=== PATIENT | female | born 2005 | race Caucasian/White ===

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

== ENCOUNTER 2024-10-06 14:43 | Outpatient (CLI) | payer OTHER, SELFPAY ==
--- NOTE | 2024-10-06 14:45 | CRLHL7_ITS ---
For Patients: As a result of the Century Cures Act, medical imaging exams and procedure reports are released immediately into your electronic medical record. You may view this report before your referring provider. If you have questions, please contact your health care provider. Indication: Lump Technique: Grayscale and color Doppler ultrasound of the left medial posterior thigh soft tissues performed. Comparison: None Findings: Circumscribed lobular hypoechoic solid mass with hypoechoic internal echotexture with associated vascularity. This is located within the subcutaneous fat and measures 1.5 x 1.4 x 0.9 cm. Impression: Indeterminate solid lobular hypoechoic vascular mass within the subcutaneous fat measuring 1.5 cm. Further evaluation with MRI recommended. Dictated by Benji Cortes MD @ 10/08/2024 6:15:43 PM (Electronically Signed)
== END 2024-10-06 14:44 | disposition home or self-care (01) ==
LOC: US 14:43
PROVIDERS: PCP Registered Nurse; Visit Provider Registered Nurse
DX: M79.89 Other specified soft tissue disorders (principal); R22.42 Localized swelling, mass and lump, left lower limb
CPT/HCPCS: 76882

== ENCOUNTER 2025-09-30 13:31 | Outpatient (CLI) | payer OTHER, SELFPAY ==
[2025-09-30 17:46] LABS: GC DNA Amplified* NOT DETECTED (No Detected)
[2025-09-30 19:39] LABS: Chlamydia DNA Amplified* DETECTED (No Detected)
== END 2025-09-30 13:32 | disposition home or self-care (01) ==
PROVIDERS: PCP Registered Nurse
DX: R10.30 Lower abdominal pain, unspecified (principal)
CPT/HCPCS: 87491; 87591

== ENCOUNTER 2025-10-01 00:19 | Emergency (ER) | payer OTHER, SELFPAY ==
[2025-10-01 00:23] VITALS: BP 120/71; PULSE 90; RESP 17; TEMP 36.6; O2SAT 96; BMI 24.5
--- NOTE | 2025-10-01 00:40 | ED.ABDPAIN ---
HPI - Abdominal Pain General Time Seen by Provider: 00:41 Date Seen: 10/01/25 Chief Complaint: Abdominal Pain Stated Complaint: abdominal pain Time Seen by Provider: 10/01/25 00:40 Source: patient, RN notes reviewed and old records reviewed Mode of arrival: ambulatory Limitations: no limitations History of Present Illness HPI narrative: 20-year-old female who presents today with abdominal pain. Patient presents today with lower abdominal pain and cramping that has been going on since yesterday. She has no nausea, vomiting, or diarrhea. She denies vaginal discharge or bleeding although does note that she took Plan B about 10 days ago and had 2 days of bleeding after that. She is sexually active. She denies urinary symptoms. She is taking ibuprofen for her pain, was seen at urgent care earlier. Related Data Previous Rx's ?Medication ?Instructions ?Recorded doxycycline monohydrate 100 mg 100 mg PO BID #13 caps 10/01/25 capsule metronidazole 500 mg tablet 500 mg PO BID #13 tabs 10/01/25 Allergies Allergy/AdvReac Type Severity Reaction Status Date / Time No Known Drug Allergies Allergy Verified 10/01/25 01:30 [facility], [facility] Social History Smoking Status: Never smoker Do you use any of these nicotine containing products: None How often do you have a drink containing alcohol: monthly or less AUDIT-C Alcohol total score: 1 Non-prescribed substance use: denies use Exam Narrative: Exam Narrative: General: Well-developed and well-nourished, no acute distress Head: Atraumatic and normocephalic Eyes: Pupils are equal reactive, extraocular motions intact, conjunctiva clear ENT: External nose and ears are normal, posterior pharynx without erythema or exudate Neck: No midline cervical tenderness, full spontaneous range of motion the neck, trachea midline, no adenopathy Heart: Regular rate and rhythm no murmurs or thrills Lungs: Clear to auscultation bilaterally without wheezes or crackles Abdomen: Soft, diffuse suprapubic tenderness, nondistended with active bowel sounds Musculoskeletal: No tenderness, deformity, or edema Neurologic: Awake, alert, and oriented x3, no gross focal neurologic deficits, cranial nerves intact as tested Psych: Mood and affect are appropriate Skin: No rashes Const: Vital Signs, click to edit/add: Vital Signs - 24 hr 10/01/25 00:23 Temperature 98 F Pulse Rate [Pulse Oximeter] 90 Respiratory Rate 17 Blood Pressure [Ri ght Upper Arm] 120/71 Pulse Oximetry 96 Oxygen Delivery Me thod Room Air Course Course ED Course: Additional records reviewed: Urgent care visit from earlier today for same complaint, labs at that time with normal CBC, negative urinalysis, negative test. Testing for chlamydia was positive. Additional history from: Care impacted by: Testing considered but not performed: See ED course patient seen examined, presents with lower abdominal pain since yesterday, no vaginal bleeding or discharge, no urinary symptoms, no diarrhea or constipation. When seen earlier today, patient did test positive for chlamydia. We discussed this result, patient's symptoms could be from mild PID. Patient will be given Rocephin, doxycycline, and Flagyl in the emergency department, CT abdomen and pelvis ordered to evaluate for other possible intra-abdominal cause for patient's symptoms. Anticipate discharge. Reevaluation(s) Time of Reevaluation #1: 01:58 Reevaluation #1: CT abdomen pelvis with moderate to large stool burden, otherwise negative. Labs with normal CBC. Patient continued to have some pain after Toradol, oxycodone ordered and MiraLax added to home prescriptions. department. Vital Signs Vital signs: Initial Vital Signs Temperature 98 F 10/01/25 00:23 Temperature Source Temporal Artery Scan 10/01/25 00:23 Pulse Rate 90 10/01/25 00:23 Respiratory Rate 17 10/01/25 00:23 Blood Pressure 120/71 10/01/25 00:23 Blood Pressure Mean 87 10/01/25 00:23 Blood Pressure Position Semi-Fowlers 10/01/25 00:23 Pulse Oximetry 96 10/01/25 00:23 Oxygen Delivery Method Room Air 10/01/25 00:23 Vital Signs Temperature 98 F 10/01/25 00:23 Pulse Rate 90 10/01/25 00:23 Respiratory Rate 17 10/01/25 00:23 Blood Pressure 120/71 10/01/25 00:23 Pulse Oximetry 96 10/01/25 00:23 Oxygen Delivery Method Room Air 10/01/25 00:23 Temperature 98 F 10/01/25 00:23 Pulse Rate 90 10/01/25 00:23 Respiratory Rate 17 10/01/25 00:23 Blood Pressure 120/71 10/01/25 00:23 Pulse Oximetry 96 10/01/25 00:23 Oxygen Delivery Method Room Air 10/01/25 00:23 Medications Administered Medications: Discontinued Medications Generic Name Dose Route Start Last Admin Trade Name Hattie PRN Reason Stop Dose Admin Doxycycline Hyclate 100 mg 10/01/25 00:51 10/01/25 01:21 Doxycycline Hyclate 100 Mg PO 10/01/25 00:52 100 mg ONCE ONE Administration Ceftriaxone Sodium 1 gm/ 100 mls @ 200 mls/hr 10/01/25 00:51 10/01/25 01:48 Sodium Chloride IVPB 10/01/25 00:52 Infused ONCE ONE Infusion Ketorolac Tromethamine 15 mg 10/01/25 00:51 10/01/25 01:21 Ketorolac 15 Mg/Ml Inj IVP 10/01/25 00:52 15 mg ONCE ONE Administration Metronidazole 500 mg 10/01/25 00:51 10/01/25 01:21 Metronidazole 500 Mg Tablet PO 10/01/25 00:52 500 mg ONCE ONE Administration Ondansetron HCl 4 mg 10/01/25 00:59 10/01/25 01:21 Ondansetron 2 Mg/Ml Inj IVP 10/01/25 01:00 4 mg ONCE ONE Administration MDM - Abdominal Pain Lab Data Labs: Lab Results 10/01/25 Range/Units 01:06 WBC 8.71 (4.50-11.00) K/uL RBC 4.77 (4.00-5.20) m/uL Hgb 15.0 (12.0-16.0) gm/dL Hct 44.8 (33.0-51.0) % MCV 94 (80-100) fL MCH 31 (26-34) pg MCHC 34 (32-36) gm/dL RDW Coeff of Kennedi 12.3 (11.5-15.5) % Plt Count 317 (140-440) K/uL Neut % (Auto) 63.6 (42.0-72.0) % Lymph % (Auto) 28.2 (20-44) % Archer % (Auto) 6.9 (0.0-11.0) % Eos % (Auto) 1.0 (0.0-7.0) % Baso % (Auto) 0.1 (0.0-3.0) % Neut # (Auto) 5.53 (1.7-7.0) K/uL Lymph # (Auto) 2.46 (0.90-2.90) K/uL Archer # (Auto) 0.60 (0.00-0.90) K/UL Eos # (Auto) 0.09 (0.00-0.50) K/uL Baso # (Auto) 0.01 (0.00-0.30) K/uL Abs Immat Gran (auto) 0.02 (0.00-0.30) K/uL Imm/Tot Granulo (auto) 0.2 % Discharge Plan Discharge Clinical Impression: Acute pelvic inflammatory disease (PID), Constipation Patient Disposition: Home, Self-Care Condition: Stable Instructions: Pelvic Inflammatory Disease (DC) Additional Instructions: Take antibiotics as prescribed starting afternoon of October 01 Apply warm packs to the low abdomen to help with pain Activity Level: Activity as Tolerated Discharge Diet: Regular Prescriptions: New metronidazole 500 mg tablet 500 mg PO BID Qty: 13 0RF doxycycline monohydrate 100 mg capsule 100 mg PO BID Qty: 13 0RF Follow Up/Referrals: Yessenia Jensen, TICKET DISPATCHER [Referring, Family Practice] Stand Alone Forms: [facility] Info Instructions
--- NOTE | 2025-10-01 00:52 | CRLHL7_ITS ---
For Patients: As a result of the Century Cures Act, medical imaging exams and procedure reports are released immediately into your electronic medical record. You may view this report before your referring provider. If you have questions, please contact your health care provider. INDICATION: Low abdominal pain. TECHNIQUE: CT of the abdomen and pelvis acquired with 72 cc Isovue 370 IV contrast. Coronal and sagittal reconstructions. COMPARISON: None. FINDINGS: Lower chest: Unremarkable. Liver: Normal in size and attenuation. No suspicious masses. Gallbladder and bile ducts: Unremarkable. No biliary dilation. Spleen: Unremarkable. Pancreas: Unremarkable. Adrenal glands: Unremarkable. Kidneys, Ureters, and Bladder: Symmetric enhancement. No hydronephrosis or ureteral dilation. No obstructing urinary calculi. No significant bladder wall thickening. Reproductive organs: Unremarkable. GI tract/Peritoneum: The stomach is markedly distended with food material. No small bowel dilation. Moderate to large stool burden. Negative appendix. No intraperitoneal free air or fluid. Vasculature: Abdominal aorta is normal in caliber. Mesenteric arteries appear patent. Lymph nodes: No lymphadenopathy. Abdominal Wall: Unremarkable. Bones: Unremarkable for age. IMPRESSION: 1. No acute findings in the abdomen or pelvis. 2. Markedly distended stomach. Moderate to large stool burden. The appendix is negative. Please note that all CT scans at this facility use dose modulation, iterative reconstruction, and/or weight-based dosing when appropriate to reduce radiation dose to as low as reasonably achievable. Dictated by Angelica Lucero MD @ 10/01/2025 1:56:18 AM (Electronically Signed)
[2025-10-01 01:13] LABS: Hematocrit* 44.8 % (33.0-51.0); Hemoglobin* 15.0 gm/dL (12.0-16.0); Immature Granulocytes Abs Auto 0.02 K/uL (0.00-0.30); Immature Granulocytes Pct Auto 0.2 %; Lymphocytes Absolute Auto 2.46 K/uL (0.90-2.90); Mean Corpuscular HGB Conc 34 gm/dL (32-36); Mean Corpuscular Hemoglobin 31 pg (26-34); Mean Corpuscular Volume 94 fL (80-100); RDW Coefficient of Variation % 12.3 % (11.5-15.5); Red Blood Count* 4.77 m/uL (4.00-5.20); White Blood Count* 8.71 K/uL (4.50-11.00)
[2025-10-01] MEDS: DOXYCYCLINE HYCLATE 100 MG PO (01:21)
[2025-10-01] MEDS: cefTRIAXone 1 GM in 0.9 % SODIUM CHLORIDE Mini-bag 100 ML IVPB (01:21)
[2025-10-01] MEDS: ONDANSETRON 2 MG/ML inj 4 MG IVP (01:21)
[2025-10-01 01:22] LABS: Slide Review Reflex No
== END 2025-10-01 02:14 | disposition home or self-care (01) ==
PROVIDERS: Emergency Provider Family Medicine
DX: A56.11 Chlamydial female pelvic inflammatory disease (principal); K59.00 Constipation, unspecified
CPT/HCPCS: 36415; 74177; 85025; 96365; 96375; 99284; 99285; A9270; J0696; J1885; J2405; Q9967